=== PATIENT | male | born 1995 | race Caucasian/White ===

== ENCOUNTER 2024-10-25 10:52 | Emergency (ER) | payer BC, SELFPAY ==
[2024-10-25 11:01] VITALS: BP 139/62; PULSE 105; RESP 16; TEMP 38.2; O2SAT 97
[2024-10-25 11:22] VITALS: TEMP 38.8
[2024-10-25 11:26] LABS: EDCOVIDSCREEN Negative (Negative)
[2024-10-25 11:27] LABS: EDINFLUASCREEN Negative (Negative); EDINFLUBSCREEN Negative (Negative); EDSTREPNEGPOS1 Negative (Negative)
--- NOTE | 2024-10-25 11:39 | ED.GENADULT ---
HPI - General Adult General Chief complaint: Upper Respiratory Infection Stated complaint: Body Aches/Congestion Source: patient Mode of arrival: ambulatory Limitations: no limitations History of Present Illness HPI narrative: Patient presents for evaluation of sick symptoms since yesterday. Symptoms include sinus congestion, headache, mucopurulent discharge from the nares and fever. No nausea, vomiting, diarrhea, cough, shortness of breath. His girlfriend is here being evaluated for similar symptoms. He took dayquil for his symptoms. He does vape. Related Data Home Medications ?Medication ?Instructions ?Recorded ?Confirmed ?Last Taken ?Type carvedilol 25 mg tablet mg 10/25/24 Unknown History famotidine 20 mg tablet mg 10/25/24 Unknown History fluoxetine 20 mg capsule mg 10/25/24 Unknown History gabapentin 300 mg capsule mg 10/25/24 Unknown History insulin glargine 100 unit/mL (3 unit subcut 10/25/24 Unknown History mL) subcutaneous pen (Lantus Solostar U-100 Insulin) insulin glargine-yfgn 100 unit/mL unit subcut 10/25/24 Unknown History (3 mL) subcutaneous pen (Semglee (insulin glargine-yfgn) Pen) Allergies Allergy/AdvReac Type Severity Reaction Status Date / Time Sulfa (Sulfonamide Allergy Mild Hives Verified 10/25/24 11:11 Antibiotics) Review of Systems Review of Systems: CONSTITUTIONAL: Reports fever. Denies chills, or sweats. EYES: Denies visual changes, redness, or discharge. ENT: Reports sinus congestion, mucopurulent discharge from nares CARDIOVASCULAR: Denies chest pain, palpitations, or edema. RESPIRATORY: Denies cough or dyspnea. GASTROINTESTINAL: Denies abdominal pain, nausea, vomiting, or diarrhea. GENITOURINARY: Denies dysuria or hematuria. SKIN: Denies rash or itching. MUSCULOSKELETAL: Denies back pain, joint pain, or myalgia. NEUROLOGIC: Reports headache. Denies numbness, dizziness, or weakness. PSYCHIATRIC: Denies anxiety or depression. [facility] Past Medical History Medical History No pertinent past medical history Surgical History Surgical History No pertinent past surgical history Family History Family History Mother Family history non-contributory Social History Social History Smoking status: Current every day smoker Tobacco type: e-cigarettes/vaping Living arrangements: with family Gender identity (if verbalized by the patient): Male Sexual Orientation (if Verbalized by the Patient): Straight or Heterosexual Spiritual care concerns: No Exam Narrative: GENERAL: Appears acutely ill but nontoxic HEAD: Normocephalic, atraumatic. EYES: PERRLA and EOMI. ENT: Thick mucopurulent discharge in the nares. Mucous membranes moist. Oropharynx without tonsillar hypertrophy exudate or other lesions. Bilateral TMs pearly morton nonbulging NECK: Supple. No adenopathy or masses. No carotid bruits or JVD CHEST: Clear to auscultation. No respiratory distress. No wheezes rales or rhonchi HEART: Regular rate and rhythm. No murmur heard. Normal peripheral pulses. ABDOMEN: Soft, nontender, nondistended, normal active bowel sounds. EXTREMITIES: Normal range of motion. No edema. SKIN: Warm, dry, no rash. NEURO: No focal deficits. Alert and oriented x3. PSYCH: Normal mood and affect. Course Course Emergency Course: This is a 29-year-old male who presented for evaluation of sick symptoms. Strep, COVID, influenza were negative. He meets criteria for ABRS based upon mucopurulent characteristic of his nasal drainage. Will dc with augmentin. Increase hydration. OTC agents for symptom management. Follow up with primary provider. Go to the ER for worsening symptoms. Pt in agreement with plan of care. Level of Care: Express Care Visit Vital Signs Vital signs: Vital Signs Temperature 38.2 C H 10/25/24 11:01 Pulse Rate 105 H 10/25/24 11:01 Respiratory Rate 16 10/25/24 11:01 Blood Pressure 139/62 10/25/24 11:01 Pulse Oximetry 97 10/25/24 11:01 Oxygen Delivery Room Air 10/25/24 11:01 Temperature 38.8 C H 10/25/24 11:22 Pulse Rate 105 H 10/25/24 11:01 Respiratory Rate 16 10/25/24 11:01 Blood Pressure 139/62 10/25/24 11:01 Pulse Oximetry 97 10/25/24 11:01 Oxygen Delivery Room Air 10/25/24 11:01 Medical Decision Making Vital Signs Vital Signs: Vital Signs Temperature 38.2 C H 10/25/24 11:01 Pulse Rate 105 H 10/25/24 11:01 Respiratory Rate 16 10/25/24 11:01 Blood Pressure 139/62 10/25/24 11:01 Pulse Oximetry 97 10/25/24 11:01 Oxygen Delivery Room Air 10/25/24 11:01 Temperature 38.8 C H 10/25/24 11:22 Pulse Rate 105 H 10/25/24 11:01 Respiratory Rate 16 10/25/24 11:01 Blood Pressure 139/62 10/25/24 11:01 Pulse Oximetry 97 10/25/24 11:01 Oxygen Delivery Room Air 10/25/24 11:01 Lab Data Labs: Lab Results 10/25/24 Range/Units 11:22 POC Influenza A Ag Negative (Negative) POC Influenza B Ag Negative (Negative) POC SARS CoV-2 Ag Negative (Negative) POC Grp A Strep Screen Negative (Negative) Discharge Plan Discharge Clinical Impression: Sinusitis Patient Disposition: Home, Self-Care Condition: Stable Instructions: Antibiotic Form, Sinusitis (ED) Patient Language: Turkish Prescriptions: New amoxicillin-pot clavulanate 875-125 mg tablet 1 tablet PO Q12H Qty: 20 0RF No Action carvedilol 25 mg tablet famotidine 20 mg tablet gabapentin 300 mg capsule fluoxetine 20 mg capsule insulin glargine [Lantus Solostar U-100 Insulin] 100 unit/mL (3 mL) insulin pen SUBCUT insulin glargine-yfgn [Semglee(insulin glarg-yfgn)Pen] 100 unit/mL (3 mL) insulin pen SUBCUT Follow-up/Referrals: Summer Shultz DO [Physician] - Time of Disposition: 11:39
--- OUTSIDE RECORDS SUMMARY | 2024-11-01 05:47 | XMS_ITS | Encounter Summary ---
Author Organization [facility] Address [address] [facility] [place] [address] [place] [address] Care Team Providers Care Supervisor Newspaper Deliveries Name Role Phone Unavailable Primary Care Provider Unavailabl e Encounter Details Date Type Department Care Team (Late st Contact Info) Description 04/05/[address] [facility] [address] [place] [address] Carla Reyes MD [facility] [place] [address] Social History Tobacco Use Types Packs/Day Years Used Date Smoking Tobacco: Never Assessed Sex and Gender Information Value Date Recorded Sex Assigned at Not on file Legal Sex Male 6:33 PM CDT Gender Identity Not on file Sexual Orientation Not on file documented as of this encounter Last Filed Vital Signs Vital Sign Reading Time Taken Comments Blood Pressure 124/68 04/05/2018 4:51 PM CDT Pulse 96 04/05/2018 4:51 PM CDT Temperature - - Respiratory Rate - - Oxygen Saturation - - Inhaled Oxygen Concentration - - Weight 131.1 kg (289 lb) 04/05/2018 4:51 PM CDT Height 172.7 cm (5' 8 ) 04/05/2018 4:51 PM CDT Body Mass Index 43.94 04/05/2018 4:51 PM CDT documented in this encounter Progress Notes * Carla Reyes MD - 04/05/2018 4:45 PM CDT Reason For Visit Stomach pain since 4 am. Thinks it could be something he ate. Hx of hemorrhoids. History of Present Illness Acute Visit HPI: Abdominal Pain: The patient is being seen for abdominal pain Symptoms: abdominal pain, nausea and diarrhea, but no vomiting, no anorexia, no dysuria, no hematuria and no dark urine. Symptom Cluster Details: he reports the symptoms are improving.. Associated Symptoms: no abdominal bloating, no fever, no chills, no lightheadedness, no weight loss, no jaundice,no hematemesis, no melena and no bloody stools. Pertinent History: Pertinent medical history: no gastroesophageal reflux disease, no hiatus hernia,no peptic ulcer disease, no pancreatitis, no cholelithiasis, no kidney stone, no inflammatory boweldisease, no irritable bowel syndrome, no diverticulitis, no alcohol abuse, no malignancy, no abdominal surgery, no appendectomy and no cholecystectomy.. Review of Systems Constitutional: Normal. ENT: normal. Cardiovascular: Normal. Respiratory: Normal. Gastrointestinal: Normal. Genitourinary: Normal. Integumentary: Normal. Musculoskeletal: Normal. Neurological: Normal. Psychiatric: Normal.. Active Problems 1. Ankle pain, right (719.47) (M25.571) 2. External hemorrhoid (455.3) (K64.4) Family History Father 1. No pertinent family history Social History ?? Never a smoker Current Meds 1. Citalopram Hydrobromide TABS; TAKE 30 MG Daily; Therapy: (Recorded:05Feb2018) to Recorded Dispense: 0 Days ; #: Sufficient Tablet; Refill: 0; ANYI = N; Record; Last Updated By: Yeni Foster; 02/05/2018 11:59:16 AM 2. Hydrocortisone 2.5 % Rectal Cream; Apply 2-3 times daily as needed; Therapy: 25Mar2018 to (Last Rx:25Mar2018) Requested for: 25Mar2018 Ordered Rx By: Katrin Palencia; Dispense: 0 Days ; #:1 X 30 GM Tube; Refill: 0; For: External hemorrhoid; ANYI = N; Verified Transmission to [employer] [id number]; Last Updated By: Ximena Gan; 04/05/2018 4:53:17 PM 3. Hydrocortisone Acetate 25 MG Rectal Suppository; Insert one suppository rectally once daily for two weeks; Therapy: 25Mar2018 to (Last Rx:25Mar2018) Requested for: 25Mar2018 Ordered Rx By: Katrin Palencia; Dispense: 0 Days ; #:14 Suppository; Refill: 0; For: External hemorrhoid; ANYI = N; Verified Transmission to [employer]; Last Updated By: [email or web address]; 04/05/2018 4:53:17 PM Allergies 1. No Known Drug Allergies Recorded By: Yeni Foster; 02/05/2018 11:59:16 AM Vitals Signs Temperature: 99.4 F Heart Rate: 96 Respiration: 20 Systolic: 124, RUE Diastolic: 68, RUE Height: 5 ft 8 in Weight: 289 lb BMI Calculated: 43.94 BSA Calculated: 2.39 Physical Exam Constitutional. no acute distress, well appearing and well nourished.. Eyes. conjunctiva and lids with no swelling, erythema or discharge.. ENT. no sinus tenderness or nasal discharge and no erythema or edema of the ears and nose. . translucent with normal light reflex and canals patent without erythema. . nasal mucosa, septum, and turbinates normal without edema or erythema. . normal oropharynx without erythema, edema, exudate, or lesions.. Pulmonary. no increased work of breathing or signs of respiratory distress. . clear to auscultation.. Cardiovascular. normal rate and rhythm, normal S1 and S2, without murmurs. . pedal pulses 2+ bilaterally.. Abdomen. non-tender and without masses. . no hepatomegaly or splenomegaly.. Lymphatic. neck nodes without lymphadenopathy.. Psychiatric. oriented to person, place, and time. . mood and affect normal.. Assessment 1. Viral gastroenteritis (008.8) (A08.4) Discussion/Summary Treatment plan includes rest, increased fluid intake, dietary modification and BRAT diet. Patient instructed to call the office if not better. Patient Discussion: follow-up with PCP. Signatures Electronically signed by : Carla Reyes M.D.; Apr 05 2018 5:43PM CATCHER PLUG (Author) documented in this encounter Miscellaneous Notes * Letter - Generic Conversion MD Neil - 04/05/2018 4:45 PM CDT Date: Apr 05, 2018 To Whom It May Concern: This is to advise that Jose Mena was evaluated by me today. Please excuse from work today and may return tomorrow with NO restrictions. Dr. Reyes_/MINDA RN (Physician's Signature) Electronically signed by:aCroline Byers R.N. Apr 05 2018 5:42PM CATCHER [employer]UG documented in this encounter Plan of Treatment Not on file documented as of this encounter Visit Diagnoses Not on filedocumented in this encounter
--- OUTSIDE RECORDS SUMMARY | 2024-11-01 05:47 | XMS_ITS | Encounter Summary ---
Author Organization [facility] Address [address] [place] [address]. [place] [address] [place] [address] Care Team Providers Care Mail Handler Sorter Name Role Phone Unavailable Primary Care Provider Unavailabl e Encounter Details Date Type Department Care Team (Late st Contact Info) Description 03/16/2002 Abstract [facility] [address] [place] [address] Rush Pang MD [address] [facility] [address] [place], [place] [address] Social History Tobacco Use Types Packs/Day Years Used Date Smoking Tobacco: Never Assessed Sex and Gender Information Value Date Recorded Sex Assigned at Not on file Legal Sex Male 6:33 PM CDT Gender Identity Not on file Sexual Orientation Not on file documented as of this encounter Plan of Treatment Not on file documented as of this encounter Visit Diagnoses Not on filedocumented in this encounter
--- OUTSIDE RECORDS SUMMARY | 2024-11-01 05:47 | XMS_ITS | Encounter Summary ---
Author Organization [facility] Address [address] [facility] [place] [address] [place] [address] Care Team Providers Care Facility Practice Specialist Name Role Phone Unavailable Primary Care Provider Unavailabl e Encounter Details Date Type Department Care Team (Late st Contact Info) Description 02/05/2018 Abstract [facility] - [address] [place] [address] Carla Reyes MD [facility] [address] [place] [address] Social History Tobacco Use Types Packs/Day Years Used Date Smoking Tobacco: Never Assessed Sex and Gender Information Value Date Recorded Sex Assigned at Not on file Legal Sex Male 6:33 PM CDT Gender Identity Not on file Sexual Orientation Not on file documented as of this encounter Progress Notes * Carla Reyes MD - 02/05/2018 11:50 AM CDT Reason For Visit Reason For Visit: Acute Visit Twisted right ankle at work yesterday while stepping off pallet. History of Present Illness HPI Free Text: 22 yo gentleman presents with right ankle pain. onset was yesterday following twisting his ankle at his job. pain worsened and ankle is swollen with tingling toes. pain is located at the anterolateral aspect of his ankle. intact sensation and ROM Review of Systems Focused-Male: Constitutional: Normal. ENT: normal. Cardiovascular: Normal. Respiratory: Normal. Gastrointestinal: Normal. Genitourinary: Normal. Integumentary: Normal. Neurological: Normal. Psychiatric: Normal.. Physical Exam Constitutional General appearance: No acute distress, well appearing and well nourished. Eyes Conjunctiva and lids: No erythema, swelling or discharge. Pupils and irises: Equal, round, reactive to light. Ophthalmoscopic examination: Normal fundi and optic discs. Ears, Nose, Mouth, and Throat External inspection of ears and nose: Normal. Otoscopic examination: Tympanic membranes translucent with normal light reflex. Canals patent without erythema. Hearing: Normal. Nasal mucosa, septum, and turbinates: Normal without edema or erythema. Lips, teeth, and gums: Normal, good dentition. Oropharynx: Normal with no erythema, edema, exudate or lesions. Neck Neck: Supple, symmetric, trachea midline, no masses. Thyroid: Normal, no thyromegaly. Pulmonary Respiratory effort: No increased work of breathing or signs of respiratory distress. Percussion of chest: Normal. Palpation of chest: Normal. Auscultation of lungs: Clear to auscultation. Cardiovascular Palpation of heart: Normal PMI, no thrills. Auscultation of heart: Normal rate and rhythm, normal S1 and S2, no murmurs. Carotid pulses: 2+ bilaterally. Abdominal aorta: Normal. Femoral pulses: 2+ bilaterally. Pedal pulses: 2+ bilaterally. Examination of extremities for edema and/or varicosities: Normal. Chest Breasts: Normal, no dimpling or skin changes appreciated. Palpation of breasts and axillae: Normal, no masses palpated. Chest: Normal. Abdomen Abdomen: Non-tender, no masses. Liver and spleen: No hepatomegaly or splenomegaly. Examination for hernias: No hernias appreciated. Anus, perineum, and rectum: Normal sphincter tone, no masses, no prolapse. Stool sample for occult blood: Negative. Genitourinary Scrotal contents: Normal testes, no masses. Penis: Normal, no lesions. Digital rectal exam of prostate: Normal size, no masses. Lymphatic Palpation of lymph nodes in neck: No lymphadenopathy. Palpation of lymph nodes in axillae: No lymphadenopathy. Palpation of lymph nodes in groin: No lymphadenopathy. Palpation of lymph nodes in other areas: No lymphadenopathy. Musculoskeletal Gait and station: Normal. Inspection/palpation of digits and nails: Normal without clubbing or cyanosis. right lateral ankle tenderness. Range of motion: Normal. Stability: Normal. Muscle strength/tone: Normal. Skin Skin and subcutaneous tissue: Normal without rashes or lesions. Palpation of skin and subcutaneous tissue: Normal turgor. Neurologic Cranial nerves: Cranial nerves 2-12 intact. Reflexes: 2+ and symmetric. Sensation: No sensory loss. Psychiatric Judgment and insight: Normal. Orientation to person, place and time: Normal. Recent and remote memory: Intact. Mood and affect: Normal. Results/Data XY Ankle 3+ View Rt NC 05Feb2018 12:14PM Carla Reyes Test Name Result Flag Reference Pacs Image Result Radiology image is available. Click on Image Link above. Assessment 1. Ankle pain, right (719.47) (M25.571) Plan 1. XY Ankle 3+ View Rt NC; Status:Resulted - Requires Verification; Done: 05Feb2018 12:14PM NSAID, Tylenol, ICe, KEYANNA wrap. Follow yo with PCP Signatures Electronically signed by : Carla Reyes M.D.; Feb 05 2018 12:24PM PHOTO TECH (Author) documented in this encounter Plan of Treatment Not on file documented as of this encounter Procedures Procedure Name Priority Date/Time Associated Diagnosis Comments XR ANKLE STANDING RT 3V Routine 02/05/2018 12:14 PM CDT documented in this encounter Results * XR ANKLE STANDING RT 3V (02/05/2018 12:14 PM CDT) Anatomical Region Laterality Modality Ankle Radiographic Brandy ging 02/05/2018 12:1 4 PM CDT 02/05/2018 12:14 PM CDT Narrative 02/05/2018 1:00 PM CDT [facility] [address] [place], [place] ??[address] ?? Name: Jose Mena MD: Carla Reyes Order Number: [id number] : 1995 Sex: M Performing Location: [facility] ? Procedure Code: NCANKL3+VR Procedure: XY Ankle 3+ View Rt NC ? Examination: Right ankle 3 views Exam time: 02/05/2018 12:09 PM Clinical history: Twisted ankle. Pain. Difficulty bearing weight. Comparison: None Technique: AP, ankle mortise, and lateral views of the right ankle were obtained. Findings: No evidence of acute fracture or dislocation of the right ankle. Os trigonum. Mild degenerative changes in the ankle and midfoot. Possible ankle joint effusion. IMPRESSION: 1. No evidence of acute fracture or dislocation of the right ankle. 2. Possible ankle joint effusion. 3. Mild degenerative changes. ? Electronically Signed By: PIETRO WEBB 02/05/181258 ?? Dictated On: 02/05/181257 Interpreted By: PIETRO WEBB Radiology image is available. Click on Image Link above. Procedure Note Carla Reyes MD - 08/18/2018 [facility] [address] [id number] Name: Jose Mena Ordering MD: Carla Reyes Order Number: [id number] : 1995 Sex: M Performing Location: [facility] Procedure Code: NCANKL3+VR Procedure: XY Ankle 3+ View Rt NC Examination: Right ankle 3 views Exam time: 02/05/2018 12:09 PM Clinical history: Twisted ankle. Pain. Difficulty bearing weight. Comparison: None Technique: AP, ankle mortise, and lateral views of the right ankle wereobtained. Findings: No evidence of acute fracture or dislocation of the right ankle.Os trigonum. Mild degenerative changes in the ankle and midfoot. Possibleankle joint effusion. IMPRESSION: 1. No evidence of acute fracture or dislocation of the right ankle. 2. Possible ankle joint effusion. 3. Mild degenerative changes. Electronically Signed By: PIETRO WEBB 02/05/18 1258 Dictated On: 02/05/181257 Interpreted By: PIETRO WEBB Radiology image is available. Click on Image Link above. Carla Reyes MD GENERAL IMAGING Final Result documented in this encounter Visit Diagnoses Not on filedocumented in this encounter
--- OUTSIDE RECORDS SUMMARY | 2024-11-01 05:47 | XMS_ITS | Encounter Summary ---
Author Organization [facility] Address [address] [place] [address]. [place] [address] [place] [address] Care Team Providers Care Office Services Associate Name Role Phone Rush Pang MD Primary Care Provider Encounter Details Date Type Department Care Team (Latest Contact Info) Description 02/23/2022 Travel Social History Tobacco Use Types Packs/Day Years Used Date Smoking Tobacco: Smoker, Current Status Unknown Smokeless Tobacco: Never Comments:Vapes Alcohol Use Standard Drinks/Week Comments Not Currently 0 (1 standard drink = 0.6 oz pur e alcohol) Sex and Gender Information Value Date Recorded Sex Assigned at Not on file Legal Sex Male 6:33 PM CDT Gender Identity Not on file Sexual Orientation Not on file COVID-19 Exposure Response Date Recorded In the last 10 days, have yo u been in contact with someone who was confirmed or suspected to have Coronavirus/COVID-19? No / Unsure 02/23/2022 6:17 AM CDT documented as of this encounter Plan of Treatment Not on file documented as of this encounter Visit Diagnoses Not on filedocumented in this encounter Care Teams Office Services Associate Relationship Specialty Start Date End Date Rush Pang MD [address] [facility] [address] [place] [address] PCP - General INTERNAL MEDICINE 02/20/22 documented as of this encounter
--- OUTSIDE RECORDS SUMMARY | 2024-11-01 05:47 | XMS_ITS | Encounter Summary ---
Author Organization [facility] Address [address] [place] [address] [place] [address] Care Team Providers Care Sourcing Engineer Name Role Phone Unavailable Primary Care Provider Unavailabl e Encounter Details Date Type Department Care Team (Late st Contact Info) Description 03/29/2018 Abstract [facility] Priority Care - [address] [place] [address] Segun Madrid MD [address] [place] [address] Social History Tobacco Use Types Packs/Day Years Used Date Smoking Tobacco: Never Assessed Sex and Gender Information Value Date Recorded Sex Assigned at Not on file Legal Sex Male 6:33 PM CDT Gender Identity Not on file Sexual Orientation Not on file documented as of this encounter Last Filed Vital Signs Vital Sign Reading Time Taken Comments Blood Pressure 122/78 03/29/2018 2:12 PM CDT Pulse 97 03/29/2018 2:12 PM CDT Temperature - - Respiratory Rate - - Oxygen Saturation - - Inhaled Oxygen Concentration - - Weight 130.2 kg (287 lb) 03/29/2018 2:12 PM CDT Height - - Body Mass Index - - documented in this encounter Progress Notes * Segun Madrid MD - 03/29/2018 2:05 PM CDT Reason For Visit States seen here for hemorrhoid on Wednesday. Patient was unable to get the suppositories due to insurance needing prior authorization. Patient states had bowl movement today and hemorrhoid was bleeding. History of Present Illness Hemorrhoid (Brief): The patient is being seen for an initial evaluation of and patient was seen fewdays ago and diagnosed with external hemorrhoids, given steroids and cream and suppository that he states he could not fill due to needing prior auth. states today after a BM hemorroids started bleeding.states only till today they approved the cream but not the suppository. hemorrhoids. Symptoms: rectal bleeding, pain with defecation and anal lump, but no anal leakage, no constipation and no diarrhea. Review of Systems See HPI for pertinent positives. Constitutional: no fever and no chills. Respiratory: Normal. Gastrointestinal: no abdominal pain, no constipation, no diarrhea and no vomiting. Genitourinary: Normal. Integumentary: Normal. Active Problems 1. Ankle pain, right (719.47) [...] hemorrhoid; ANYI = N; Verified Transmission to [id number]; Last Updated By: [employer]; 03/25/2018 2:42:57 PM 3. Hydrocortisone Acetate 25 MG Rectal Suppository; Insert one suppository rectally once daily for two weeks; Therapy: 25Mar2018 to (Last Rx:25Mar2018) Requested for: 25Mar2018 Ordered Rx By: Katrin Palencia; Dispense: 0 Days ; #:14 Suppository; Refill: 0; For: External hemorrhoid; ANYI = N; Verified Transmission to [id number]; Last Updated By: Ximena Gan; 03/25/2018 2:42:59 PM Allergies 1. No Known Drug Allergies Recorded By: Yeni Foster; 02/05/2018 11:59:16 AM Vitals Signs Temperature: 98.5 F Heart Rate: 97 Respiration: 20 Systolic: 122 Diastolic: 78 O2 Saturation: 97 Weight: 287 lb Physical Exam Constitutional General appearance: No acute distress, well appearing and well nourished. Pulmonary Respiratory effort: No increased work of breathing or signs of respiratory distress. Auscultation of lungs: Clear to auscultation. no wheezing. no diminished breath sounds. no bronchial breath sounds. Cardiovascular Auscultation of heart: Normal rate and rhythm, normal S1 and S2, no murmurs. Abdomen Abdomen: Non-tender, no masses. The abdomen was soft. Liver and spleen: No hepatomegaly or splenomegaly. Anus, perineum, and rectum: Abnormal. There were no anal fissures. Nontender, non-swollen and non-thrombosed external hemorrhoid(s) were present. Assessment 1. External hemorrhoid (455.3) (K64.4) Plan External hemorrhoid 1. Apply cold compresses 4 times a day for 20 minutes to help relieve pain or itching.; Status:Complete; Done: 29Mar2018 Ordered; For:External hemorrhoid; Ordered By:Segun Madrid; 2. Call if: The symptoms seem worse.; Status:Complete; Done: 29Mar2018 Ordered; For:External hemorrhoid; Ordered By:Segun Madrid; 3. Avoid being constipated and avoid straining while having a bowel movement.; Status:Complete; Done: 29Mar2018 Ordered; For:External hemorrhoid; Ordered By:Segun Madrid; 4. Call if: You are constipated.; Status:Complete; Done: 29Mar2018 Ordered; For:External hemorrhoid; Ordered By:Segun Madrid; 5. Check for signs of blood in your stool each time you have a bowel movement.; Status:Complete; Done: 29Mar2018 Ordered; For:External hemorrhoid; Ordered By:Segun Madrid; 6. Call if: You have pain around the rectum.; Status:Complete; Done: 29Mar2018 Ordered; For:External hemorrhoid; Ordered By:Segun Madrid; 7. Drink at least 6 glasses of water or juice a day.; Status:Complete; Done: 29Mar2018 Ordered; For:External hemorrhoid; Ordered By:Segun Madrid; 8. Seek Immediate Medical Attention if: You become dizzy or lightheaded, especially when you stand up after sitting for a while.; Status:Complete; Done: 29Mar2018 Ordered; For:External hemorrhoid; Ordered By:Segun Madrid; 9. Sit for 20 minutes in a bathtub with warm water up to your waist every 4 hours.; Status:Complete; Done: 29Mar2018 Ordered; For:External hemorrhoid; Ordered By:Segun Madrid; 10. Start eating more fiber.; Status:Complete; Done: 29Mar2018 Ordered; For:External hemorrhoid; Ordered By:Segun Madrid; Instructions as above, continue hydrocortisone cream as instructed, keep f/u with PCP. Signatures Electronically signed by : Segun Madrid M.D.; Mar 29 2018 2:46PM FIELD SUPERINTENDENT (Author) documented in this encounter Miscellaneous Notes * Letter - Segun Madrid MD - 03/29/2018 2:05 PM CDT This legacy [employer] note was not finalized in [employer]. It had a status of Unsigned on 07/22/2018 Date: Mar 29, 2018 To Whom It May Concern: This is to advise that Jose Mena has been under my care and is unable to work today. Limitations/Remarks: [ ] (Physician's Signature) documented in this encounter Plan of Treatment Not on file documented as of this encounter Visit Diagnoses Not on filedocumented in this encounter
--- OUTSIDE RECORDS SUMMARY | 2024-11-01 05:47 | XMS_ITS | Encounter Summary ---
Author Organization [facility] Address [address] [place] [address]. [place], [place] [address] [place] [address] Care Team Providers Care Pensionholder Information Clerk Name Role Phone Rush Pang MD Primary Care Provider Reason for Visit * Auth/Cert Specialty Diagnoses / Procedures Referred By Lena granger Referred To Contact Diagnoses VITREOUS HEMORRHAGE Procedures INSERT LENS PROSTHESIS ONLY VITRECTOMY 23 GAUGE Referral ID Status Reason Start Date Expiration Date Visits Re quested Visits Authorized [id number] 1 1 Encounter Details Date Type Department Care Team (Late st Contact Info) Description 02/23/2022 8:00 AM CDT - 02/23/2022 9:44 AM CDT Surgery [facility] [place] [facility] [place] [address] Jimy Hartley MD Not Performed Social History Tobacco Use Types Packs/Day Years [...] AM CDT documented as of this encounter Last Filed Vital Signs Vital Sign Reading Time Taken Comments Blood Pressure - - Pulse - - Temperature - - Respiratory Rate - - Oxygen Saturation - - Inhaled Oxygen Concentration - - Weight 117.9 kg (260 lb) 02/17/2022 4:46 PM CDT Height 172.7 cm (5' 8 ) 02/17/2022 4:46 PM CDT Body Mass Index 39.53 02/17/2022 4:46 PM CDT documented in this encounter Medications at Time of Discharge apixaban 5 MG tablet Take 5 mg by mouth 2 (two) times daily. carvedilol 12.5 MG tablet Take 12.5 mg by mouth 2 (two) times daily. cholecalciferol (VITAMIN D3) 125 MCG (5000 UT) Tab Take 5,000 Units by mouth daily. famotidine 20 MG tablet Take 20 mg by mouth 2 (two) times daily as needed for Heartburn. FLUoxetine 20 MG capsule Take 20 mg by mouth daily. furosemide 20 MG tablet Take 20 mg by mouth daily. gabapentin 300 MG capsule Take 300 mg by mouth 3 (three) times daily. 2 caps in am and hs, 1 cap in pm hydrOXYzine 25 MG tablet Take 25 mg by mouth 3 (three) times daily as needed for Itching. insulin glargine 100 UNIT/ML injection (PEN) Inject 25 Units into the skin nightly at bedtime. magnesium oxide 400 (240 Mg) MG tablet Take 400 mg by mouth daily. traZODone 100 MG tablet Take 100 mg by mouth nightly at bedtime. documented as of this encounter Plan of Treatment Not on file documented as of this encounter Visit Diagnoses Not on filedocumented in this encounter Administered Medications Inactive Administered Medications - up to 3 most recent administrations Medication Order MAR Action Action Date Dose Rate Site atropine 1 % ophthalmic solution 1 drop 1 drop, Left Eye, Every 5 min, 3 doses, First dose on Wed02/23/22 at 0730, Last dose on Wed02/23/22 at 0740, Pre-Op lactated ringers infusion at 10 mL/hr, Intravenous, Continuous, Starting on Wed02/23/22 at 0730, Until Wed02/23/22 at 0934 phenylephrine (NARINDER-SYNEPHRINE) 10 % ophthalmic solution 1 drop 1 drop, Left Eye, Every 5 min, 3 doses, First dose on Wed02/23/22 at 0730, Last dose on Wed02/23/22 at 0740, Pre-Op documented in this encounter Active and Recently Administered Medications Times are shown in CDT. Scheduled Medication Order 02/21/2022 02/22/2022 02/23/2022 atropine 1 % ophthalmic solution 1 drop 1 drop, Left Eye, Every 5 min, 3 doses, First dose on Wed02/23/22 at 0730, Last dose on Wed02/23/22 at 0740, Pre-Op 0730 (Canceled Entry - Provider: Automatic Discharge Provider - Comment: Automatically canceled at discontinue of medication order)0735 (Canceled Entry - Provider: Automatic Discharge Provider - Comment: Automatically canceled at discontinue of medication order)0740 (Canceled Entry - Provider: Automatic Discharge Provider - Comment: Automatically canceled at discontinue of medication order) phenylephrine (NARINDER-SYNEPHRINE) 10 % ophthalmic solution 1 drop 1 drop, Left Eye, Every 5 min, 3 doses, First dose on Wed02/23/22 at 0730, Last dose on Wed02/23/22 at 0740, Pre-Op 0730 (Canceled Entry - Provider: Automatic Discharge Provider - Comment: Automatically canceled at discontinue of medication order)0735 (Canceled Entry - Provider: Automatic Discharge Provider - Comment: Automatically canceled at discontinue of medication order)0740 (Canceled Entry - Provider: Automatic Discharge Provider - Comment: Automatically canceled at discontinue of medication order) Continuous Medication Order 02/21/2022 02/22/2022 02/23/2022 lactated ringers infusion at 10 mL/hr, Intravenous, Continuous, Starting on Wed02/23/22 at 0730, Until Wed02/23/22 at 0934 0730 (Canceled Entry - Provider: Automatic Discharge Provider - Comment: Automatically canceled at discontinue of medication order) documented in this encounter Care Teams Pensionholder Information Clerk Relationship Specialty Start Date End Date Rush Pang MD [address] [place] [id number] PCP - General INTERNAL MEDICINE 02/20/22 documented as of this encounter
--- OUTSIDE RECORDS SUMMARY | 2024-11-01 05:47 | XMS_ITS | Encounter Summary ---
Author Organization [facility] Address [address] [place] [address]. [place] [address] [place] [address] Care Team Providers Care Caddy/Caddie Supervisor Name Role Phone Unavailable Primary Care Provider Unavailabl e Encounter Details Date Type Department Care Team (Late st Contact Info) Description 10/09/2016 Abstract [facility] Medical [facility] Priority Care - SNaomi [address] [place] [address] Social History Tobacco Use Types Packs/Day Years Used Date Smoking Tobacco: Never Assessed Sex and Gender Information Value Date Recorded Sex Assigned at Not on file Legal Sex Male 6:33 PM CDT Gender Identity Not on file Sexual Orientation Not on file documented as of this encounter Progress Notes * Yogesh Clark Md, MD - 10/09/2016 11:10 AM CST Note [facility] drug screen. Sent to [facility]. Non [facility]. Signatures Electronically signed by : Vinnie Garcia, ; Oct 09 2016 11:21AM AQUARIUM TANK ATTENDANT (Author) documented in this encounter Plan of Treatment Not on file documented as of this encounter Visit Diagnoses Not on filedocumented in this encounter
--- OUTSIDE RECORDS SUMMARY | 2024-11-01 05:47 | XMS_ITS | Encounter Summary ---
Author Organization [facility] Address [facility] [place] [address] [place] [address] Care Team Providers Care Photographic Enlarger Operator Name Role Phone Unavailable Primary Care Provider Unavailabl e Encounter Details Date Type Department Care Team (Late st Contact Info) Description 02/05/2018 Abstract [facility] Priority Care - [address] [place] [address] Carla Reyes MD [facility] [address] [place], [place] [id number] Social History Tobacco Use Types Packs/Day Years Used Date Smoking Tobacco: Never Assessed Sex and Gender Information Value Date Recorded Sex Assigned at Not on file Legal Sex Male 6:33 PM CDT Gender Identity Not on file Sexual Orientation Not on file documented as of this encounter Last Filed Vital Signs Vital Sign Reading Time Taken Comments Blood Pressure 124/62 02/05/2018 11:57 AM CDT Pulse 96 02/05/2018 11:57 AM CDT Temperature - - Respiratory Rate - - Oxygen Saturation - - Inhaled Oxygen Concentration - - Weight 130.2 kg (287 lb) 02/05/2018 11:57 AM CDT Height - - Body Mass Index - - documented in this encounter Plan of Treatment Not on file documented as of this encounter Visit Diagnoses Not on filedocumented in this encounter
--- OUTSIDE RECORDS SUMMARY | 2024-11-01 05:47 | XMS_ITS | Encounter Summary ---
Author Organization [facility] Address [address] [place] [address]. [place], [place] [address] [place] [address] Care Team Providers Care Box Maker Wood Name Role Phone Rush Pang MD Primary Care Provider Reason for Visit * Auth/Cert Specialty Diagnoses / Procedures Referred By Lena granger Referred To Contact Diagnoses VITREOUS HEMORRHAGE Procedures INSERT LENS PROSTHESIS ONLY VITRECTOMY 23 GAUGE Referral ID Status Reason Start Date Expiration Date Visits Re quested Visits Authorized [id number] 1 1 Encounter Details Date Type Department Care Team (Latest Contact Info) Description 02/23/2022 6:19 AM CDT - 02/23/2022 7:28 AM CDT Hospital Encounter [facility] [place] [address] [place] [address] Jimy Hartley MD Discharge Disposition: Home or Self Care (Routine Discharge) Social History Tobacco Use Types Packs/Day Years [...] order) documented in this encounter Care Teams Box Maker Wood Relationship Specialty Start Date End Date Rush Pang MD [address] [address] PCP - General INTERNAL MEDICINE 02/20/22 documented as of this encounter
--- OUTSIDE RECORDS SUMMARY | 2024-11-01 05:47 | XMS_ITS | Encounter Summary ---
Author Organization [facility] Address [address] [place] [address]. [place] [address] [place] [address] Care Team Providers Care Reed Repairer Name Role Phone Rush Pang MD Primary Care Provider Reason for Visit * Auth/Cert Specialty Diagnoses / Procedures Referred By Lena granger Referred To Contact Diagnoses VITREOUS HEMORRHAGE Procedures INSERT LENS PROSTHESIS ONLY VITRECTOMY 23 GAUGE Referral ID Status Reason Start Date Expiration Date Visits Re quested Visits Authorized [id number] 1 1 Encounter Details Date Type Department Care Team (Late st Contact Info) Description 02/23/2022 8:00 AM CDT Anesthesia Event [facility] [address] [place] [address] Derek Wolf MD Anesthesia Record Procedure Summary Procedure Name Responsible Anesthesiologist Anesthesia Start Time Anesthesia Stop Time Events Date Time Event Comment 02/23/2022 0633 0633 AN Anesthesia Prepped 02/27/2022 1420 ANE Not Admin Meds * Agents No agents on file. * Blood No blood administrations on file. Lines, Drains, and Airways No LDAs on file. documented in this encounter Social History Tobacco Use Types Packs/Day Years [...] AM CDT documented as of this encounter OR Notes * Anesthesia Preprocedure Evaluation - Derek Wolf MD - 02/23/2022 6:32 AM CDT Anesthesia ROS/MED History Reviewed: Patient summary , Nursing notes , Anesthesia history , Medications , Unchecked boxes are not applicable Pre-Anesthetic State: awake and responds appropriately Pulmonary (+) sleep apnea, (CPAP) Cardiovascular (+) hypertension, (well controlled) ROS comment: History of PE Neuro/Psych (+) depression GI/Hepatic/Renal (+) GERD, (well controlled) Endo/Other (+) diabetes mellitus, (well controlled), (type 2), (sub Q insulin), obese, (Morbid), blood dyscrasia, (Anticoagulation) Physical Evaluation Airway Mallampati: III TM Distance: >3 FB Neck ROM: limited extension Dental No notable dental history Pulmonary Pulmonary exam normal Breath sounds clear to auscultation Cardiovascular Rhythm: regular Rate: normal Cardiovascular exam normal Anesthesia Plan ASA 3 Intravenous Induction Anesthesia type: MAC Informed Consent Anesthetic plan and risks discussed with patient of whom consent was obtained. . documented in this encounter Plan of Treatment Not on file documented as of this encounter Visit Diagnoses Not on filedocumented in this encounter Care Teams Reed Repairer Relationship Specialty Start Date End Date Rush Pang MD [address] [address] PCP - General INTERNAL MEDICINE 02/20/22 documented as of this encounter
--- OUTSIDE RECORDS SUMMARY | 2024-11-01 05:47 | XMS_ITS | Encounter Summary ---
Author Organization [facility] Address [address] [place] [address]. [place] [address] [place] [address] Care Team Providers Care Staff Developer Name Role Phone Unavailable Primary Care Provider Unavailabl e Encounter Details Date Type Department Care Team (Late st Contact Info) Description 1997 Abstract [facility] [address] [place] [address] , Generic Conversion, Social History Tobacco Use Types Packs/Day Years [...]
--- OUTSIDE RECORDS SUMMARY | 2024-11-01 05:47 | XMS_ITS | Encounter Summary ---
Author Organization [facility] Address [address] [place] [address]. [place], [place] [address] [place] [address] Care Team Providers Care Court Operations Clerk Name Role Phone Unavailable Primary Care Provider Unavailabl e Reason for Visit * Reason Comments ECG (SCAN) Encounter Details Date Type Department Care Team ([facility] st Contact Info) Description 01/12/2022 Scan [facility] [address] [place] [address] Scanned, Documents ECG (SCAN) Social History Tobacco Use Types Packs/Day Years [...] suspected to have Coronavirus/COVID-19? No / Unsure 02/17/2022 4:50 PM CDT documented as of this encounter Plan of Treatment Not on file documented as of this encounter Procedures Procedure Name Priority Date/Time Associated Diagnosis Comments ECG GENERIC (SCAN ORDER) Routine 01/12/2022 12:00 AM CDT documented in this encounter Results * ECG (01/12/2022 12:00 AM CDT) 01/12/2022 us Documents Scanned SCANNING Final Result [facility] documented in this encounter Visit Diagnoses Not on filedocumented in this encounter
--- OUTSIDE RECORDS SUMMARY | 2024-11-01 05:47 | XMS_ITS | Encounter Summary ---
Author Organization [facility] Address [address] [place] [address] [place] [address] Care Team Providers Care Centrifuge Separator Tender Name Role Phone Unavailable Primary Care Provider Unavailabl e Encounter Details Date Type Department Care Team (Late st Contact Info) Description 03/25/2018 Abstract [facility] Priority Care - [address] [place] [address] Katrin Palencia NP [address] [place] [address] Social History Tobacco Use Types Packs/Day Years Used Date Smoking Tobacco: Never Assessed Sex and Gender Information Value Date Recorded Sex Assigned at Not on file Legal Sex Male 6:33 PM CDT Gender Identity Not on file Sexual Orientation Not on file documented as of this encounter Last Filed Vital Signs Vital Sign Reading Time Taken Comments Blood Pressure 112/60 03/25/2018 2:16 PM CDT Pulse 78 03/25/2018 2:16 PM CDT Temperature - - Respiratory Rate - - Oxygen Saturation - - Inhaled Oxygen Concentration - - Weight - - Height - - Body Mass Index - - documented in this encounter Progress Notes * Katrin Palencia NP - 03/25/2018 2:10 PM CDT Reason For Visit c/o rectal pain x 2-3 days. Chief Complaint Patient is here for rectal pain for 2-3 days. Blood with wiping x 2 (scant amount) today. Hurts with standing, sitting, walking. History of Present Illness HPI Free Text: Patient presents today c/o rectal pain x 2-3 days. He states a history of hemorrhoids but has not had one is a while. He noticed a small amount of blood on the toilet paper this morning when he wiped. He states that he lifts heavy objects at work and has to stand for long periods of time. Rectal Pain: Jose Mena presents with complaints of rectal pain. Associated symptoms include pain with defecation and rectal bleeding, but no perianal pain, no constipation, no diarrhea, no rectal discharge, no fecal incontinence, no perianal itching, no black or tarry stools, no anal mass, no fever, no chills, no weight loss, no perianal rash, no nausea, no vomiting and no abdominal pain. Review of Systems See HPI for pertinent positives. Constitutional: Normal. ENT: normal. Cardiovascular: Normal. Respiratory: Normal. Gastrointestinal: rectal pain, but no abdominal pain, no constipation, no diarrhea and no vomiting. Genitourinary: Normal. Integumentary: Normal. Musculoskeletal: Normal. Neurological: Normal. Psychiatric: Normal.. Active Problems 1. Ankle pain, right (719.47) (M25.571) Family History Father 1. No pertinent family history Social History ?? Never a smoker Current Meds 1. Citalopram Hydrobromide TABS; TAKE 30 MG Daily; Therapy: (Recorded:05Feb2018) to Recorded Dispense: 0 Days ; #: Sufficient Tablet; Refill: 0; ANYI = N; Record; Last Updated By: Yeni Foster; 02/05/2018 11:59:16 AM Allergies 1. No Known Drug Allergies Recorded By: Yeni Foster; 02/05/2018 11:59:16 AM Vitals Signs Temperature: 97.8 F Heart Rate: 78 Respiration: 18 Systolic: 112 Diastolic: 60 Physical Exam A tender, swollen, non-thrombosed external hemorrhoid was present. Residual hemorrhoidal skin tags noted. The sphincter tone was normal. There was rectal tenderness present on the right in the 2:00 position. Constitutional. no acute distress, well appearing and well nourished.. Head/Face. normal.. Eyes. conjunctiva and lids with no swelling, erythema or discharge.. Pulmonary. no increased work of breathing or signs of respiratory distress. . clear to auscultation.. Cardiovascular. normal rate and rhythm, normal S1 and S2, without murmurs.. Abdomen. non-tender and without masses.. Psychiatric. oriented to person, place, and time. . mood and affect normal.. Assessment 1. External hemorrhoid (455.3) (K64.4) Plan External hemorrhoid 1. Hydrocortisone 2.5 % Rectal Cream; Apply 2-3 times daily as needed Rx By: Katrin Palencia; Dispense: 0 Days ; #:1 X 30 GM Tube; Refill: 0; For: External hemorrhoid; ANYI = N; Verified Transmission to [employer]; Last Updated By: [employer] 03/25/2018 2:42:57 PM 2. Apply cold compresses 4 times a day for 20 minutes to help relieve pain or itching.; Status:Complete; Done: 25Mar2018 02:55PM Ordered; For:External hemorrhoid; Ordered By:Katrin Palencia; 3. Call if: The symptoms seem worse.; Status:Complete; Done: 25Mar2018 02:55PM Ordered; For:External hemorrhoid; Ordered By:Katrin Palencia; 4. Hydrocortisone Acetate 25 MG Rectal Suppository; Insert one suppository rectally once daily for two weeks Rx By: Katrin Palencia; Dispense: 0 Days ; #:14 Suppository; Refill: 0; For: External hemorrhoid; ANYI = N; Verified Transmission to [employer]; Last Updated By: [employer] 03/25/2018 2:42:59 PM Formulary Override Reason: No Formulary Equivalent Exists 5. Avoid being constipated and avoid straining while having a bowel movement.; Status:Complete; Done: 25Mar2018 02:55PM Ordered; For:External hemorrhoid; Ordered By:Katrin Palencia; 6. Call if: Your rectal pain is worse.; Status:Complete; Done: 25Mar2018 02:55PM Ordered; For:External hemorrhoid; Ordered By:Katrin Palencia; 7. Check for signs of blood in your stool each time you have a bowel movement.; Status:Complete; Done: 25Mar2018 02:55PM Ordered; For:External hemorrhoid; Ordered By:Katrin Palencia; 8. Call if: Your swelling is not better after a few days of treatment and/or rest.; Status:Complete; Done: 25Mar2018 02:55PM Ordered; For:External hemorrhoid; Ordered By:Katrin Palencia; 9. Drink at least 6 glasses of water or juice a day.; Status:Complete; Done: 25Mar2018 02:55PM Ordered; For:External hemorrhoid; Ordered By:Katrin Palencia; 10. Call if: Your temperature is higher than 101F.; Status:Complete; Done: 25Mar2018 02:55PM Ordered; For:External hemorrhoid; Ordered By:Katrin Palencia; 11. Sit for 20 minutes in a bathtub with warm water up to your waist every 4 hours.; Status:Complete; Done: 25Mar2018 02:55PM Ordered; For:External hemorrhoid; Ordered By:Katrin Palencia; 12. Seek Immediate Medical Attention if: You become dizzy or lightheaded, especially when you stand up after sitting for a while.; Status:Complete; Done: 25Mar2018 02:55PM Ordered; For:External hemorrhoid; Ordered By:Katrin Palencia; 13. Start eating more fiber.; Status:Complete; Done: 25Mar2018 02:55PM Ordered; For:External hemorrhoid; Ordered By:Katrin Palencia; 14. Seek Immediate Medical Attention if: You begin bleeding from the affected area or your dressing becomes soaked with blood.; Status:Complete; Done: 25Mar2018 02:55PM Ordered; For:External hemorrhoid; Ordered By:Katrin Palencia; 15. Status:Complete; Done: 25Mar2018 02:55PM Ordered; For:External hemorrhoid; Ordered By:Katrin Palencia; Signatures Electronically signed by : CURT Jordan; Mar 25 2018 2:55PM GAUNTLET PAIRER (Author) documented in this encounter Miscellaneous Notes * Letter - Katrin Palencia NP - 03/25/2018 2:10 PM CDT Date: Mar 25, 2018 To Whom It May Concern: This is to advise that Jose Mena has been under my care and is unable to work for 3 days. Limitations/Remarks: return to work on 03/28 (Physician's Signature) Electronically signed by:Lexy Jackson R.N. Mar 25 2018 2:36PM GAUNTLET PAIRER documented in this encounter Plan of Treatment Not on file documented as of this encounter Visit Diagnoses Not on filedocumented in this encounter
--- OUTSIDE RECORDS SUMMARY | 2024-11-01 05:47 | XMS_ITS | Encounter Summary ---
Author Organization [facility] Address On license of [facility] [facility] [place] [address] [place] [address] Care Team Providers Care Controls Technician Name Role Phone Unavailable Primary Care Provider Unavailabl e Encounter Details Date Type Department Care Team (Late st Contact Info) Description 05/13/2005 Emergency [facility] Emergency [address] [place] [address] Rush Pang MD [address] [place] [address] [address] [place] [address] Social History Tobacco Use Types Packs/Day Years [...]
--- OUTSIDE RECORDS SUMMARY | 2024-11-01 05:47 | XMS_ITS | Encounter Summary ---
Author Organization [facility] Address [address] [place] [address]. [place], [place] [id number] [place] [address] Care Team Providers Care Manager Fine Dining Name Role Phone Unavailable Primary Care Provider Unavailabl e Encounter Details Date Type Department Care Team (Latest Contact Info) Description 02/17/2022 Travel Social History Tobacco Use Types Packs/Day [...]
--- OUTSIDE RECORDS SUMMARY | 2024-11-01 05:47 | XMS_ITS | Encounter Summary ---
Author Organization [facility] Address [address] [place] [address]. [place] [address] [place] [address] Care Team Providers Care Regular Senior Care Provider Name Role Phone Unavailable Primary Care Provider Unavailabl e Encounter Details Date Type Department Care Team (Late st Contact Info) Description 07/13/1998 Abstract [facility] [address] [place] [address] Casper Graves MD [address] [place], [place] [id number] Social History Tobacco Use Types Packs/Day Years [...]
--- OUTSIDE RECORDS SUMMARY | 2024-11-01 05:47 | XMS_ITS | Clinical Summary ---
Author Organization [facility] [place] Address [address] [place] [address]. [place], [place] [address] [place] [address] Care Team Providers Care Er Physician Name Role Phone Rush Pang MD Primary Care Provider Allergies Active Allergy Reactions Criticality Noted Date Comments Clarithromycin Rash Low 02/17/2022 Sulfamethoxazole-Trimetho prim Other (see comment) 02/17/2022 Severe stomach cramps Medications carvedilol 12.5 MG tablet Take 12.5 mg by mouth 2 (two) times daily. Active apixaban 5 MG tablet Take 5 mg by mouth 2 (two) times daily. Active famotidine 20 MG tablet Take 20 mg by mouth 2 (two) times daily as needed for Heartburn. Active FLUoxetine 20 MG capsule Take 20 mg by mouth daily. Active furosemide 20 MG tablet Take 20 mg by mouth daily. Active gabapentin 300 MG capsule Take 300 mg by mouth 3 (three) times daily. 2 caps in am and hs, 1 cap in pm Active hydrOXYzine 25 MG tablet Take 25 mg by mouth 3 (three) times daily as needed for Itching. Active insulin glargine 100 UNIT/ML injection (PEN) Inject 25 Units into the skin nightly at bedtime. Active magnesium oxide 400 (240 Mg) MG tablet Take 400 mg by mouth daily. Active traZODone 100 MG tablet Take 100 mg by mouth nightly at bedtime. Active cholecalciferol (VITAMIN D3) 125 MCG (5000 UT) Tab Take 5,000 Units by mouth daily. Active Family History Medical History Relation Comments Diabetes Mother Relation Status Comments Father Alive Mother Alive Social History Tobacco Use Types Packs/Day Years [...] on file Sexual Orientation Not on file Last Filed Vital Signs Vital Sign Reading [...] Mass Index 39.53 02/17/2022 4:46 PM CDT Plan of Treatment Health Maintenance Due Date Last Done Comments Annual Physical 2000 Pneumococcal Vaccine: Pediatrics (0 to 5 Years) and At-Risk Patients (6 to 64 Years) (1 of 2 - PCV) 2003 Hepatitis C 2015 COVID-19 Vaccine (3 - 2023- season) 2024 01/14/2022, 12/24/2021 Influenza Adult (#1) 2024 DTaP, Tdap and Td Vaccines (7 - Td or Tdap) 08/27/2029 08/27/2019, 06/21/2002, 04/02/2000, Additional history exists Hepatitis B Vaccines Completed 10/04/2000, 1997, 1997, Additional history exists HPV Vaccines Aged Out No longer eligi ble based on patient's age to complete this topic Meningococcal Vaccine Aged Out No lulu sonny eligible based on patient's age to complete this topic RSV Immunizations Under 20 Months Aged Out No longer eligible based on patient's age to complete this topic [place] [address] [address] [address] [employer] Care Teams Er Physician Relationship Specialty Start Date End Date Rush Pang MD [address] [facility] [address] [place] [address] PCP - General INTERNAL MEDICINE 02/20/22
--- OUTSIDE RECORDS SUMMARY | 2024-11-01 05:47 | XMS_ITS | Encounter Summary ---
Author Organization [facility] Address [facility] [facility] [address] [place] [address] Care Team Providers Care Principal Technical Architect Name Role Phone Unavailable Primary Care Provider Unavailabl e Encounter Details Date Type Department Care Team (Late st Contact Info) Description 03/14/[address] [facility] [address] [place] [address] Rush Pang MD [address] [facility] [address] [place] [id number] Social History Tobacco Use Types Packs/Day Years [...]
--- OUTSIDE RECORDS SUMMARY | 2024-11-01 05:47 | XMS_ITS | Encounter Summary ---
Author Organization [facility] Address [address] [place] [address]. [place] [address] [place] [address] Care Team Providers Care Offset Label Rewinder Name Role Phone Unavailable Primary Care Provider Unavailabl e Encounter Details Date Type Department Care Team (Late st Contact Info) Description 02/05/1998 Abstract [facility] [address] [place] [address] , Generic Conversion, Social History Tobacco Use [...]
== END 2024-10-25 11:44 | disposition home or self-care (01) ==
PROVIDERS: Emergency Provider Nurse Practitioner
DX: J32.9 Chronic sinusitis, unspecified (principal); Z20.822 Contact with and (suspected) exposure to COVID-19
CPT/HCPCS: 87081; 87426; 87804; 87880; 99203; G0463

== ENCOUNTER 2024-11-21 08:08 | Outpatient (RCR) | payer OTHER, SELFPAY ==
--- NOTE | 2024-11-21 09:08 | OPREHPOC ---
Outpatient Therapy Plan of Care This is a Multidisciplinary Plan of Care that may contain components documented by all disciplines (PT, OT, and ST.) PT Problem 1 PT Problem #1 Knowledge Deficit PT Goal 1 Goal / Goal Update The patient will be independent in home exercise program. Target Visit 4 PT Problem 2 PT Problem #2 Pain PT Goal 1 Goal / Goal Update The patient will report no greater than 3/10 right shoulder pain with lifting and sleeping. Target Visit 8 PT Problem 3 PT Problem #3 Impaired Functional Mobility PT Goal 1 Goal / Goal Update The patient will demonstrate 30% or less self perceived disability per the Quick DASH questionnaire. The patient will demonstrate the ability to lift 30 lbs from floor to waist without increased right shoulder pain to return to lifting his toddlers. Target Visit 8 PT Problem 4 PT Problem #4 Impaired Range of Motion PT Goal 1 Goal / Goal Update The patient will improve right shoulder flexion to 140 degrees or more to improve overhead reaching ability. The patient will improve functional right shoulder IR to T10 to improve ability to wash the back. Target Visit 8 PT Problem 5 PT Problem #5 Impaired Strength PT Goal 1 Goal / Goal Update The patient will demonstrate 4+/5 right shoulder strength throughout without pain elicited. Target Visit 8
--- NOTE | 2024-11-21 09:09 | PTOPEVAL1 ---
Assessment and note entered by Stella Marcus, PT Evaluation Information Assessment Status Evaluation Diagnosis R shoulder sprain ICD-10 Condition Codes (PT) Pain in right shoulder M25.511 Other ICD-10 Condition Codes ( S43.401A PT) Onset 10/23/24 Subjective Information Jose Mena reports he injured his right shoulder while working at [employer] in mid September 2024. He was turning a pipe wrench and felt a pop in his shoulder. He went to the doctor through [facility] and was started on an anti-inflammatory. 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 It helped a little but then it stopped helping so he was switched to another anti- inflammatory and referred to PT. He notes increased pain when he lifts his arm out to the side, reaching behind his back, laying on the right side, and trying to hold his toddlers. He has not had any x-rays or other diagnostic tests. Reported Pain Level Pain Score 6: Self Report Assessment PT Clinical Summary Jose Mena presents with right shoulder pain following an injury sustained mid September 2024 while turning a pipe wrench. He is reporting difficulty with lifting his right arm to the side, behind his back, laying on the right side, and lifting. He objectively demonstrates tenderness along the long head of the biceps and subscapularis insertion, decreased and painful right shoulder AROM, decreased right shoulder strength, and positive special tests consistent with subscapularis and biceps involvement. He will benefit from skilled PT to address these limitations. Plan of Care Interventions Electrical Stimulation,Hot Pack/Cold Pack,Manual Therapy,Neuro Re-education,Patient/Caregiver Education,Therapeutic Activities,Therapeutic Exercise PT Services Indicated Yes Treatment Frequency and 2 times a week for 8 visits Duration These treatments will address the objective and functional deficits as defined above. The patient will be advanced safely and appropriately in order for the patient to progress towards his/her prior level of function. Additional exercises will be introduced and as well as a comprehensive home exercise program upon discharge, if needed, ?to ensure carryover of functional gains achieved in the clinic. This treatment plan has been reviewed and agreement upon by the patient.
--- NOTE | 2024-12-18 09:53 | OPREHPOC ---
Outpatient Therapy Plan of Care This is a Multidisciplinary Plan of Care that may contain components documented by all disciplines (PT, OT, and ST.) PT Problem 1 PT Problem #1 Knowledge Deficit PT Goal 1 Goal / Goal Update The patient will be independent in home exercise program. Target Visit 4 Progress Met PT Problem 2 PT Problem #2 Pain PT Goal 1 Goal / Goal Update The patient will report no greater than 3/10 right shoulder pain with lifting and sleeping. Target Visit 8 Progress Not Met PT Goal 2 Goal / Goal Update Continue Target Visit 16 PT Problem 3 PT Problem #3 Impaired Functional Mobility PT Goal 1 Goal / Goal Update The patient will demonstrate 30% or less self perceived disability per the Quick DASH questionnaire. The patient will demonstrate the ability to lift 30 lbs from floor to waist without increased right shoulder pain to return to lifting his toddlers. Target Visit 8 Progress Not Met PT Goal 2 Goal / Goal Update Continue Target Visit 16 PT Problem 4 PT Problem #4 Impaired Range of Motion PT Goal 1 Goal / Goal Update The patient will improve right shoulder flexion to 140 degrees or more to improve overhead reaching ability. The patient will improve functional right shoulder IR to T10 to improve ability to wash the back. Target Visit 8 Progress Met PT Problem 5 PT Problem #5 Impaired Strength PT Goal 1 Goal / Goal Update The patient will demonstrate 4+/5 right shoulder strength throughout without pain elicited. Target Visit 8 Progress Not Met PT Goal 2 Goal / Goal Update Continue Target Visit 16
--- NOTE | 2024-12-18 09:54 | PTOPPROG ---
Assessment and note entered by Maria Luisa Canales, PT Evaluation Information Assessment Status Progress Diagnosis R shoulder sprain ICD-10 Condition Codes (PT) Pain in right shoulder M25.511 Other ICD-10 Condition Codes ( S43.401A PT) Onset 10/23/24 Subjective Information Mr. Mena notes some improvement in his R shoulder strength since beginning therapy but besides this his shoulder is unchanged. Pain is intermittent in nature but is still the same intensity and increases when he lifts his arm out to the side, reaching behind his back, laying on the right side, and trying to hold his toddlers. Pain also continues to wake him up at night. Assessment PT Clinical Summary Mr. eMna has attended 8 total skilled therapy visits addressing R shoulder pain and weakness. While his R shoulder strength and ROM have mildly improved, he still demonstrates impairments in these areas as well as continued impaired functional use of the arm. He can benefit from further skilled PT intervention to improve on these deficits return to prior level of function and normal work activities without pain. Plan of Care Interventions Electrical Stimulation,Hot Pack/Cold Pack, Intermittent Compression Pump,Manual Therapy,Neuro Re-education,Patient/Caregiver Education, Therapeutic Activities,Therapeutic Exercise,Self- Care/Home Management PT Services Indicated Yes Treatment Frequency and 2x/week for 8 visits Duration These treatments will address the objective and functional deficits as defined above. The patient will be advanced safely and appropriately in order for the patient to progress towards his/her prior level of function. Additional exercises will be introduced and as well as a comprehensive home exercise program upon discharge, if needed, ?to ensure carryover of functional gains achieved in the clinic. This treatment plan has been reviewed and agreement upon by the patient.
--- NOTE | 2025-01-15 16:35 | PCPTNOTE ---
Patient did not show up for scheduled appointment this date.
--- NOTE | 2025-01-18 17:27 | PCPTNOTE ---
Cancelled session. Started new job. Reports he is all over the place and forgetting.
--- NOTE | 2025-02-05 13:18 | PCPTNOTE ---
Cancelled session.Thought his appointment was tomorrow and his schedule is busy with his new job.
--- NOTE | 2025-02-07 08:27 | PCPTNOTE ---
No call, no show.
== END 2025-02-19 23:59 | disposition home or self-care (01) ==
LOC: CHSPT 08:08
DX: S43.401A Unspecified sprain of right shoulder joint, initial encounter (principal)
CPT/HCPCS: 97014; 97110; 97112; 97150; 97161; 97530; G0283

== ENCOUNTER 2025-02-06 16:20 | Emergency (ER) | payer SELFPAY ==
[2025-02-06 16:23] VITALS: BP 159/98; PULSE 100; RESP 18; O2SAT 96
--- NOTE | 2025-02-06 16:30 | ED.GENADULT ---
HPI - General Adult General Chief complaint: Unspecified Stated complaint: ALLERGIC REACTION Time Seen by Provider: 02/06/25 16:29 Source: patient Mode of arrival: ambulatory Limitations: no limitations History of Present Illness HPI narrative: patient is a 29-year-old male with a significant past medical history that presents today for possible allergic reaction. Patient takes fluoxetine and has for many many years. He says this morning he took it and the capsule opened and he coughed a backup and all the stuff inside of it went to the back of his throat and he choked on L a bit and cough that up and then his throat started stinging and burning and turn red. Onset (ago): hour(s) Location: mouth Radiation: non-radiation Severity: mild Severity scale (1-10): 2 Quality: burning Pain Consistency: constant Relieving factors: none Exacerbating factors: none Associated symptoms: denies other symptoms Treatments prior to arrival: none Related Data Home Medications ?Medication ?Instructions ?Recorded ?Confirmed ?Last Taken ?Type carvedilol 25 mg tablet mg 10/25/24 Unknown History famotidine 20 mg tablet mg 10/25/24 Unknown History fluoxetine 20 mg capsule mg 10/25/24 Unknown History gabapentin 300 mg capsule mg 10/25/24 Unknown History insulin glargine 100 unit/mL (3 unit subcut 10/25/24 Unknown History mL) subcutaneous pen (Lantus Solostar U-100 Insulin) insulin glargine-yfgn 100 unit/mL unit subcut 10/25/24 Unknown History (3 mL) subcutaneous pen (Semglee (insulin glargine-yfgn) Pen) Allergies Allergy/AdvReac Type Severity Reaction Status Date / Time Sulfa (Sulfonamide Allergy Mild Hives Verified 02/06/25 16:28 Antibiotics) Review of Systems Review of Systems: All systems reviewed & are unremarkable except as noted in HPI and below Constitutional: Constitutional: Reports as per HPI and Reports no additional constitutional complaints Eyes: Eyes: Reports no additional eye complaints ENT: Reports as per HPI and Reports mouth pain Cardiovascular: Cardiovascular: Reports no additional cardiovascular complaints Respiratory: Respiratory: Reports no additional respiratory complaints Gastrointestinal: Gastrointestinal: Reports no additional gastrointestinal complaints Genitourinary: Genitourinary: Reports no additional male genitourinary complaints Musculoskeletal: Musculoskeletal: Reports no additional musculoskeletal complaints Integumentary/Breasts: Skin/Breast: Reports system reviewed and no additional complaints, except as docu Neurologic: Reports system reviewed and no additional complaints, except as documented Psychiatric: Psychiatric: Reports no additional psychiatric complaints Endocrine: Endocrine: Reports no additional endocrine complaints Hematologic/Lymphatic: Hematologic/Lymphatic: Reports no additional hematologic/lymphatic complaints Allergic/Immunologic: Allergic/Immunologic: Reports no additional allergic/immunologic complaints [facility] Past Medical History Medical History No pertinent past medical history Surgical History Surgical History No pertinent past surgical history Family History Family History Mother Family history non-contributory Social History Social History Smoking status: Current every day smoker Tobacco type: e-cigarettes/vaping Living arrangements: with family Gender identity (if verbalized by the patient): Male Sexual Orientation (if Verbalized by the Patient): Straight or Heterosexual Spiritual care concerns: No Exam Const: General: cooperative Nutritional Appearance: average body habitus Orientation/consciousness: oriented to person HENMT: Head: normal to inspection Ears: hearing grossly normal bilaterally Face/Nose/Sinus: Normal external nose present Face and sinus: normal facial exam Mouth: Yes Normal oral and palatal mucosa present Teeth and gingiva: dentition normal Throat: posterior oropharynx normal Eyes: General: appearance normal, both eyes and all related structures Neck: Neck: normal visual inspection Thyroid: thyroid normal Carotids: normal carotid upstroke Chest: Chest palpation & inspection: normal inspection of the chest Resp: Effort & Inspection: normal respiratory effort Auscultation: clear to auscultation bilaterally Percussion: percussion normal Cardio: Jugular venous distension: no JVD Palpation: normal PMI Rate: regular rate GI: Inspection: normal to inspection GI Palp: Yes abdominal tenderness Percussion: Yes normal to percussion Auscultation: normal bowel sounds Rectal Exam: visual inspection normal Back/Spine/Pelvis: Back: no CVA tenderness Skin: General skin exam: normal color Neuro: General: oriented to person and oriented to place Cognition (Neuro): normal cognition Speech: normal speech Gait exam (Neuro): Normal gait present Extrem: General: normal to inspection Right lower extremity: normal to inspection Psych: Appearance: grossly normal Course Vital Signs Vital signs: Vital Signs Pulse Rate 100 02/06/25 16:23 Respiratory Rate 18 02/06/25 16:23 Blood Pressure 159/98 H 02/06/25 16:23 Pulse Oximetry 96 02/06/25 16:23 Oxygen Delivery Room Air 02/06/25 16:23 Pulse Rate 100 02/06/25 16:23 Respiratory Rate 18 02/06/25 16:23 Blood Pressure 159/98 H 02/06/25 16:23 Pulse Oximetry 96 02/06/25 16:23 Oxygen Delivery Room Air 02/06/25 16:23 Medical Decision Making MDM Narrative Medical decision making narrative: Patient is has some stinging and burning sensation in the back of his throat from the capsule breaking open in the anterior contents going on in his throat. It is just irritated and a little bit red but there are no signs of any infection no signs of any allergic reaction he is taking his medication for a very long time he is a allergic reaction to it. Discussed with him getting some prolonged measures and today he knows to he has the pain Differential Diagnosis Differential Diagnosis: throat pain, oral pharynx erythema Medical Records Medical records reviewed: Yes I reviewed the external patient's medical records. Vital Signs Vital Signs: Vital Signs Pulse Rate 100 02/06/25 16:23 Respiratory Rate 18 02/06/25 16:23 Blood Pressure 159/98 H 02/06/25 16:23 Pulse Oximetry 96 02/06/25 16:23 Oxygen Delivery Room Air 02/06/25 16:23 Pulse Rate 100 02/06/25 16:23 Respiratory Rate 18 02/06/25 16:23 Blood Pressure 159/98 H 02/06/25 16:23 Pulse Oximetry 96 02/06/25 16:23 Oxygen Delivery Room Air 02/06/25 16:23 Discharge Plan Discharge Clinical Impression: Pain in throat, Throat irritation Patient Disposition: Home Condition: Stable Instructions: Acute Rash (ED) Patient Language: Australian Prescriptions: No Action carvedilol 25 mg tablet famotidine 20 mg tablet gabapentin 300 mg capsule fluoxetine 20 mg capsule insulin glargine [Lantus Solostar U-100 Insulin] 100 unit/mL (3 mL) insulin pen SUBCUT insulin glargine-yfgn [Semglee(insulin glarg-yfgn)Pen] 100 unit/mL (3 mL) insulin pen SUBCUT amoxicillin-pot clavulanate 875-125 mg tablet 1 tablet PO Q12H Qty: 20 0RF Follow-up/Referrals: UNKNOWN,DOCTOR [Primary Care Provider] - Time of Disposition: 16:51
--- OUTSIDE RECORDS SUMMARY | 2025-02-06 16:55 | XMS_ITS | Referral Summary ---
Author Organization [facility] Office Building [address] [place] [id number] Care Team Providers Care Epic Analyst Name Role Phone Rush Pang MD Primary Care Provider Yoel Burgess MD Unavailable [phone] Encounters Date Type Department Care Team Description 12/13/2024 Orders Only [facility] [address] [place] [address] [phone] Yoel Burgess MD Thoracic spine pain (Primary Dx); Lumbosacral spondylosis without myelopathy; Lumbar facet joint syndrome 12/13/2024 9:45 AM ENVIRONMENTAL HEALTH OFFICER - 12/13/2024 11:59 PM ENVIRONMENTAL HEALTH OFFICER Hospital Encounter [facility] [address] [place] [phone] Yoel Burgess MD Lumbosacral spondylosis without myelopathy (Primary Dx); Thoracic spine pain; Lumbar facet joint syndrome Discharge Disposition: Discharge to home or self care from Last 3 Months Allergies Active Allergy Reactions Criticality Noted Date Comments Clarithromycin Rash Medium 02/17/2022 Sulfamethoxazole-Trimetho prim Other (See comments) Low 02/17/2022 Other reaction(s): Other (see comment) Severe stomach cramps Severe stomach cramps Medications carvediloL (COREG) 12.5 mg tablet Take 1 tablet (12.5 mg total) by mouth 2 (two) times a day Active cholecalciferol (VITAMIN D-3) 5,000 unit tablet Take 1 tablet (5,000 Units total) by mouth daily Active famotidine (PEPCID) 20 mg tablet Take 1 tablet (20 mg total) by mouth 2 (two) times a day 3 Active FLUoxetine (PROzac) 20 mg capsule Take 1 capsule (20 mg total) by mouth daily Active gabapentin (NEURONTIN) 300 mg capsule TAKE 1 CAPSULE BY MOUTH IN THE MORNING AND 1 CAPSULE BY MOUTH IN THE AFTERNOON THEN 2 CAPSULES BY MOUTH IN THE EVENING 3 Active LANTUS 100 unit/mL (3 mL) pen for injection INJECT 25 UNITS UNDER THE SKIN EVERY NIGHT AT BEDTIME 3 Active vit D3-vit Q-wstzyhrhc-cml s [id number] usgo-ovu-qw-mg tablet Take 500 mg by mouth 3 (three) times a day Active Active Problems Problem Noted Date Diagnosed Date Lumbosacral spondylosis without myelopathy 12/13 Thoracic spine pain 12/13/2024 Lumbar facet joint syndrome 12/13/2024 Anxiety 10/04/2023 Overview (12/13/2024): Last Assessment & Plan: Condition: stable Source of diagnosis: Review of systems, Screenings/Questionnaires and Medication Member is not currently seeing mental health provider. He has had counselor in past, was given cognitive behavioral modification tips and uses these with current anxiety that he finds is working well. Things you can do to help with anxiety is to try to manage stress and avoid triggers. When becoming anxious, go to a quiet place and try to relax by taking deep breaths, or go outside to get fresh air, or take a walk to try to calm down. Do activities that are soothing like listening to soft music, coloring, reading, or journaling. Follow up in: if symptoms worsen or fail to improve Gastroesophageal reflux disease without esophagi tis 10/04/2023 Overview (12/13/2024): Last Assessment & Plan: Condition: stable Source of diagnosis: Review of systems and Medication Reviewed use of antacid medication and/or diet modifications of decreasing caffeine, spicy foods, chocolate, and avoiding alcohol, tobacco, NSAIDs, and reducing citrus acids. Follow up in: if symptoms worsen or fail to improve Hypertension associated with type 2 diabetes lidia litus 10/04/2023 Overview (12/13/2024): Last Assessment & Plan: Condition: stable Source of diagnosis: Screenings/Questionnaires and Medication Discussed glucose control targets. Educated on: Lifestyle changes, Nutrition, Foot care, Medication compliance and Smoking cessation Follow up in: three months with PCP Morbid (severe) obesity due to excess calories 1 12/05/2022 Overview (12/13/2024): Last Assessment & Plan: Condition: stable Source of diagnosis: Vital signs and Physical Exam Co-morbidities: N/A BMI > 40 Weight loss should be attempted with healthy diet and exercise. Include more fresh vegetables and stick to lean meats. Avoid processed foods, foods high in fat and sugar, and eliminate sugary drinks such as juice and soda. Including exercise should be a minimum of 30 minutes of aerobic activity on most days of the week, along with three days of resistance training. Building muscle helps to burn more calories. Make realistic goals and take baby steps. Make one good healthy choice each day and add another healthy choice each day or each week. Stay consistent and motivated by sharing your goals with others. Follow up in: one month Social History Tobacco Use Types Packs/Day Years Used Date Smoking Tobacco: Former Cigarettes Passive Smoke Exposure: Never Smokeless Tobacco: Never Tobacco Cessation:Counseling Given: No Sex and Gender Information Value Date Recorded Sex Assigned at Not on file Legal Sex Male 1:44 AM ENVIRONMENTAL HEALTH OFFICER Gender Identity Not on file Sexual Orientation Not on file Last Filed Vital Signs Vital Sign Reading Time Taken Comments Blood Pressure 129/97 12/13/2024 10:23 AM ENVIRONMENTAL HEALTH OFFICER Pulse 83 12/13/2024 10:23 AM ENVIRONMENTAL HEALTH OFFICER Temperature - - Respiratory Rate 18 12/13/2024 10:23 AM ENVIRONMENTAL HEALTH OFFICER Oxygen Saturation 97% 12/13/2024 10:23 AM ENVIRONMENTAL HEALTH OFFICER Inhaled Oxygen Concentration - - Weight 122.5 kg (270 lb) 12/13/2024 10:23 AM ENVIRONMENTAL HEALTH OFFICER Height 172.7 cm (5' 8 ) 12/13/2024 10:23 AM ENVIRONMENTAL HEALTH OFFICER Body Mass Index 41.05 12/13/2024 10:23 AM ENVIRONMENTAL HEALTH OFFICER Plan of Treatment Not on file Care Teams Epic Analyst Relationship Specialty Start Date End Date Rush Pang MD [address] [facility] [address] [place] [address] PCP - General Pediatrics 12/13/24 [place] [id number] [facility] [address] [place] [id number] Consulting Physician Pain Management 12/13/24
--- OUTSIDE RECORDS SUMMARY | 2025-02-06 16:55 | XMS_ITS | Clinical Summary ---
Author Organization [facility] Office Building [address] [place] [phone] Care Team Providers Care College Tutor Name Role Phone Rush Pang MD Primary Care Provider Yoel Burgess MD Unavailable [phone] Allergies Active Allergy Reactions Criticality Noted Date [...] NIGHT AT BEDTIME 3 Active vit D3-vit Y-nitlujsxl-rvu s [id number] uhbs-xva-vs-mg tablet Take 500 mg by mouth 3 [...] with others. Follow up in: one month Encounters Date Type Department Care Team Description 12/13/2024 9:45 AM IT ADMINISTRATIVE ASSISTANT - 12/13/2024 11:59 PM IT ADMINISTRATIVE ASSISTANT Hospital Encounter [facility] [address] [place] [phone] Yoel Burgess MD Lumbosacral spondylosis without myelopathy (Primary Dx); Thoracic spine pain; Lumbar facet joint syndrome Discharge Disposition: Discharge to home or self care 12/13/2024 Orders Only [facility] [address] [place] [phone] Yoel Burgess MD Thoracic spine pain (Primary Dx); Lumbosacral spondylosis without myelopathy; Lumbar facet joint syndrome from Last 3 Months Surgical History Surgery Date Site/Laterality Comments OTHER SURGICAL HISTORY pilonidal cyst removed from [facility]-January 2022 TRACHEOSTOMY 2021 GASTROSTOMY W/ FEEDING TUBE 10/25/2021 - 10/24/2022 TONSILLECTOMY 2001 Medical History Medical History Date Comments Anxiety Hypertension Diabetes mellitus (HCC) Pilonidal cyst Family History Medical History Relation Name Comments Early Cardiac Disease Father Sunday Carpal tunnel syndrome Mother Awa Rheum arthritis Mother Awa Relation Name Status Comments Father Sunday Alive Mother Awa Alive Social History Tobacco Use Types Packs/Day Years Used Date Smoking Tobacco: Former Cigarettes Passive Smoke Exposure: Never Smokeless Tobacco: Never Tobacco Cessation:Counseling Given: No Sex and Gender Information Value Date Recorded Sex Assigned at Not on file Legal Sex Male 1:44 AM IT ADMINISTRATIVE ASSISTANT Gender Identity Not on file Sexual Orientation Not on file Obstetrics History Last Filed Vital Signs Vital Sign Reading Time Taken Comments Blood Pressure 129/97 12/13/2024 10:23 AM IT ADMINISTRATIVE ASSISTANT Pulse 83 12/13/2024 10:23 AM IT ADMINISTRATIVE ASSISTANT Temperature - - Respiratory Rate 18 12/13/2024 10:23 AM IT ADMINISTRATIVE ASSISTANT Oxygen Saturation 97% 12/13/2024 10:23 AM IT ADMINISTRATIVE ASSISTANT Inhaled Oxygen Concentration - - Weight 122.5 kg (270 lb) 12/13/2024 10:23 AM IT ADMINISTRATIVE ASSISTANT Height 172.7 cm (5' 8 ) 12/13/2024 10:23 AM IT ADMINISTRATIVE ASSISTANT Body Mass Index 41.05 12/13/2024 10:23 AM IT ADMINISTRATIVE ASSISTANT Plan of Treatment Health Maintenance Due Date Last Done Comments Albumin Creatinine Ratio, Urine 1997 Depression Screening 1997 Hemoglobin A1C 1997 Hepatitis C Screening 1997 eGFR 1997 Dilated Eye Exam 1997 Foot Exam 1997 Lipid Panel 1997 Varicella Vaccines (1 of 2 - 13+ 2-dose series) 2010 Regular Well Visit/Exam 18-64 2015 Pneumococcal vaccine <65 (1 of 2 - PCV) 2016 Covid-19 Vaccine (3 - season) 2024 01/14/2022, 12/24/2021 Influenza Vaccine (Season Ended) 2025 DTaP/Tdap/Td Vaccine (7 - Td or Tdap) 08/27/2029 08/27/2019, 06/21/2002, 04/02/2000, Additional history exists Hepatitis B Screening Completed 10/04/2000 , 1997, 1997, Additional history exists HPV Vaccines Aged Out No longer eligi ble based on patient's age to complete this topic Care Teams College Tutor Relationship Specialty Start Date End Date Rush Pang MD [address] [place] [address] PCP - General Pediatrics 12/13/24 [place] [address] [place] [address] Consulting Physician Pain Management 12/13/24
--- OUTSIDE RECORDS SUMMARY | 2025-02-06 16:55 | XMS_ITS | Clinical Summary ---
Author Organization [facility] Address [address] [place] [address] Care Team Providers Care Credit Verification Clerk Name Role Phone Rush Pang MD [...] 5 Years) and At-Risk Patients (6 to 49 Years) (1 of 2 - PCV) 2003 Hepatitis C 2015 COVID-19 Vaccine (3 - season) 2024 01/14/2022, 12/24/2021 DTaP, Tdap and Td Vaccines (7 - Td or Tdap) 08/27/2029 08/27/2019, 06/21/2002, 04/02/2000, Additional history exists Hepatitis B Vaccines Completed 10/04/2000, 1997, 1997, Additional history exists HPV Vaccines Aged Out No longer eligi ble based on patient's age to complete this topic Meningococcal B Vaccine Aged Out No l onger eligible based on patient's age to complete this topic Meningococcal Vaccine Aged Out No lulu sonny eligible based on patient's age to complete this topic RSV Immunizations Under 20 Months Aged Out No longer eligible based on patient's age to complete this topic [place] [address] [place] [address] [employer] Care Teams Credit Verification Clerk Relationship Specialty Start Date End Date Rush Pang MD [address] [facility] [address] [place] [address] PCP - General INTERNAL MEDICINE 02/20/22
[2025-02-06 16:58] VITALS: O2SAT 100
== END 2025-02-06 16:58 | disposition home or self-care (01) ==
LOC: CHSED 16:59
PROVIDERS: Emergency Provider Family Medicine
DX: R07.0 Pain in throat (principal); J39.2 Other diseases of pharynx; F17.290 Nicotine dependence, other tobacco product, uncomplicated
CPT/HCPCS: 99281

== ENCOUNTER 2025-02-19 11:20 | Emergency (ER) | payer OTHER, SELFPAY ==
--- NOTE | ~2025-02-19 | XR_ITS ---
XR shoulder RT min 2V Ordering provider: Shahid Maradiaga MD History: . right shoulder pain today, felt a pop ac joint pain . Comparison: None. FINDINGS: BONES: No acute fracture or dislocation. JOINT SPACES: The acromioclavicular joint is normal. The glenohumeral joint is normal. SOFT TISSUES: Normal. IMPRESSION: No acute osseous abnormality right shoulder. Reviewed, dictated and finalized at location A.
[2025-02-19 11:20] VITALS: BP 143/93; PULSE 82; RESP 18; TEMP 36.8; O2SAT 99
--- NOTE | 2025-02-19 12:52 | PC.NURSE ---
PT IS IN RADIOLOGY AT THIS TIME.
--- NOTE | 2025-02-19 13:07 | ED.UPPEXIN ---
HPI - Extremity Injury (Upper) General Chief Complaint: Extremity Injury, Upper Stated Complaint: shoulder injury Time Seen by Provider: 02/19/25 11:47 Source: patient Mode of arrival: ambulatory Limitations: no limitations History of Present Illness HPI narrative: patient is a 29-year-old male with significant past medical history that presents today for a right shoulder injury. Patient was on job and says he was using a weed eater which weighs about 10-15 lb and says that he was going back and forth with that and pulled his shoulder and felt a loud pop. This is the same holds shoulder he has injury but previously and had physical therapy for which did help. Now he has injected again as his hertz for most motions and is just taken some ibuprofen for. He says this should be a worker's Comp because It happened at work. complaint: injury to: right and shoulder Onset (ago): hour(s) Other Extremity Injury: Right: shoulder Other injuries: none Place: work Severity: moderate Severity scale (1-10): 5 Relieving factors: none Exacerbating factors: movement of extremity Context: injury Associated symptoms: weakness Related Data Home Medications ?Medication ?Instructions ?Recorded ?Confirmed ?Last Taken ?Type carvedilol 25 mg tablet mg 10/25/24 Unknown History famotidine 20 mg tablet mg 10/25/24 Unknown History fluoxetine 20 mg capsule mg 10/25/24 Unknown History gabapentin 300 mg capsule mg 10/25/24 Unknown History insulin glargine 100 unit/mL (3 unit subcut 10/25/24 Unknown History mL) subcutaneous pen (Lantus Solostar U-100 Insulin) insulin glargine-yfgn 100 unit/mL unit subcut 10/25/24 Unknown History (3 mL) subcutaneous pen (Semglee (insulin glargine-yfgn) Pen) Allergies Allergy/AdvReac Type Severity Reaction Status Date / Time Sulfa (Sulfonamide Allergy Mild Hives Verified 02/19/25 11:24 Antibiotics) Review of Systems Review of Systems: All systems reviewed & are unremarkable except as noted in HPI and below Constitutional: Constitutional: Reports as per HPI Eyes: Eyes: Reports no additional eye complaints ENT: Reports system reviewed and no additional complaints, except as documented Cardiovascular: Cardiovascular: Reports no additional cardiovascular complaints Respiratory: Respiratory: Reports no additional respiratory complaints Gastrointestinal: Gastrointestinal: Reports no additional gastrointestinal complaints Genitourinary: Genitourinary: Reports no additional male genitourinary complaints Musculoskeletal: Musculoskeletal: Reports as per HPI and Reports arthralgias ( right shoulder) Integumentary/Breasts: Skin/Breast: Reports system reviewed and no additional complaints, except as docu Neurologic: Reports system reviewed and no additional complaints, except as documented Psychiatric: Psychiatric: Reports no additional psychiatric complaints Endocrine: Endocrine: Reports no additional endocrine complaints Hematologic/Lymphatic: Hematologic/Lymphatic: Reports no additional hematologic/lymphatic complaints Allergic/Immunologic: Allergic/Immunologic: Reports no additional allergic/immunologic complaints [facility] Past Medical History Medical History No pertinent past medical history Surgical History Surgical History No pertinent past surgical history Family History Family History Mother Family history non-contributory Social History Social History Smoking status: Current every day smoker Tobacco type: e-cigarettes/vaping Living arrangements: with family Gender identity (if verbalized by the patient): Male Sexual Orientation (if Verbalized by the Patient): Straight or Heterosexual Spiritual care concerns: No Exam Const: General: healthy appearing Nutritional Appearance: well nourished Orientation/consciousness: patient oriented x3 HENMT: Head: normal to inspection Ears: external ears normal Face/Nose/Sinus: Normal external nose present Face and sinus: normal facial exam Mouth: Yes Normal oral and palatal mucosa present Eyes: Conjunctivae: conjunctivae normal Pupils: Equal, round and reactive pupils present EOM: EOMs intact bilaterally Direct Ophthalmoscopy: no photophobia Neck: Neck: normal visual inspection Chest: Chest palpation & inspection: normal inspection of the chest Resp: Effort & Inspection: normal respiratory effort Auscultation: clear to auscultation bilaterally Cardio: Rate: regular rate Rhythm: regular rhythm Heart sounds: Murmur heart sound present GI: GI Palp: Yes Soft to palpation Back/Spine/Pelvis: Back: no CVA tenderness Skin: General skin exam: normal color Rashes: no rashes Wounds: no wounds Neuro: General: patient oriented x3 Cranial nerves: Yes Nystagmus not present Speech: normal speech Extrem: General: normal to inspection Psych: Mental Status: mental status grossly normal Affect: normal affect Attitude: cooperative Course Vital Signs Vital signs: Vital Signs Temperature 98.3 F 02/19/25 11:20 Pulse Rate 82 02/19/25 11:20 Respiratory Rate 18 02/19/25 11:20 Blood Pressure 143/93 H 02/19/25 11:20 Pulse Oximetry 99 02/19/25 11:20 Oxygen Delivery Room Air 02/19/25 11:20 Temperature 98.3 F 02/19/25 11:20 Pulse Rate 82 02/19/25 11:20 Respiratory Rate 18 02/19/25 11:20 Blood Pressure 143/93 H 02/19/25 11:20 Pulse Oximetry 99 02/19/25 11:20 Oxygen Delivery Room Air 02/19/25 11:20 MDM - Extremity Injury (Upper) MDM Narrative Medical decision making narrative: patient hurt his right shoulder at work on he was weeding using a weed whacker that weighs about 10 15 lb. He says that he must of twisted it just right and heard a loud popping sensation. He has positive empty can test positive Bradshaw test. He has pain to palpation around the AC joint. Will do an x-ray of the right shoulder. X-ray of the right shoulder showed no acute abnormalities. Discussed with him if he still has pain then X 3 weeks to discuss with his primary care about this and get physical therapy and MRI. Differential Diagnosis Differential diagnosis: Likely other ( Right shoulder pain) Medical Records Attestation: I reviewed the patient's medical records. Lab Data Attestation: I reviewed the patient's lab results. Imaging Data Attestation: I personally reviewed and interpreted this imaging study as follows: Discharge Plan Discharge Clinical Impression: Acute pain of right shoulder, Right shoulder strain Patient Disposition: Home Condition: Stable Instructions: Shoulder Sprain (ED) Additional Instructions: If he is still having pain in the right shoulder at the next 3 weeks return to PCP and recommend doing physical therapy and or getting an MRI. Patient Language: [place] Prescriptions: No Action carvedilol 25 mg tablet famotidine 20 mg tablet gabapentin 300 mg capsule fluoxetine 20 mg capsule insulin glargine [Lantus Solostar U-100 Insulin] 100 unit/mL (3 mL) insulin pen SUBCUT insulin glargine-yfgn [Semglee(insulin glarg-yfgn)Pen] 100 unit/mL (3 mL) insulin pen SUBCUT amoxicillin-pot clavulanate 875-125 mg tablet 1 tablet PO Q12H Qty: 20 0RF Follow-up/Referrals: Bird,Rush [Other] Time of Disposition: 13:21
--- OUTSIDE RECORDS SUMMARY | 2025-02-19 13:20 | XMS_ITS | Clinical Summary ---
Author Organization [facility] Office Building [address] [place] [id number] Care Team Providers Care Gas Meter Reader Name Role Phone Rush Pang MD Primary Care Provider Yoel Burgess MD Unavailable [phone]- [phone] Allergies Active Allergy Reactions Criticality Noted Date [...] NIGHT AT BEDTIME 3 Active vit D3-vit W-cnqdakrzc-soc s [id number] fdde-fyg-qx-mg tablet Take 500 mg by mouth 3 [...] Department Care Team Description 12/13/2024 9:45 AM JUDICIAL CLERK - 12/13/2024 11:59 PM JUDICIAL CLERK Hospital Encounter [facility] [address] [place] [id number] Yoel Burgess MD Lumbosacral spondylosis without myelopathy (Primary Dx); Thoracic spine pain; Lumbar facet joint syndrome Discharge Disposition: Discharge to home or self care 12/13/2024 Orders Only [facility] [address] [place] [id number] Yoel Burgess MD Thoracic spine pain (Primary Dx); Lumbosacral spondylosis without myelopathy; Lumbar facet joint syndrome from Last 3 Months Surgical History Surgery Date Site/Laterality Comments OTHER SURGICAL HISTORY pilonidal cyst removed from [facility]-January 2022 TRACHEOSTOMY 2021 GASTROSTOMY W/ FEEDING TUBE [...] on file Legal Sex Male 1:44 AM JUDICIAL CLERK Gender Identity Not on file Sexual Orientation Not on file Obstetrics History Last Filed Vital Signs Vital Sign Reading Time Taken Comments Blood Pressure 129/97 12/13/2024 10:23 AM JUDICIAL CLERK Pulse 83 12/13/2024 10:23 AM JUDICIAL CLERK Temperature - - Respiratory Rate 18 12/13/2024 10:23 AM JUDICIAL CLERK Oxygen Saturation 97% 12/13/2024 10:23 AM JUDICIAL CLERK Inhaled Oxygen Concentration - - Weight 122.5 kg (270 lb) 12/13/2024 10:23 AM JUDICIAL CLERK Height 172.7 cm (5' 8 ) 12/13/2024 10:23 AM JUDICIAL CLERK Body Mass Index 41.05 12/13/2024 10:23 AM JUDICIAL CLERK Plan of Treatment Health Maintenance Due Date [...] age to complete this topic Care Teams Gas Meter Reader Relationship Specialty Start Date End Date Rush Pang MD [address] [place] [address] PCP - General Pediatrics 12/13/24 [place] [address] [place] [address] Consulting Physician Pain Management 12/13/24
--- OUTSIDE RECORDS SUMMARY | 2025-02-19 13:20 | XMS_ITS | Referral Summary ---
Author Organization [facility] Office Building [address] [place] [phone] Care Team Providers Care Game Designer Name Role Phone Rush Pang MD Primary Care Provider Yoel Burgess MD Unavailable [phone] Encounters Date Type Department Care Team Description 12/13/2024 Orders Only [facility] [address] [place] [phone] Yoel Burgess MD Thoracic spine pain (Primary Dx); Lumbosacral spondylosis without myelopathy; Lumbar facet joint syndrome 12/13/2024 9:45 AM TAX CLERK - 12/13/2024 11:59 PM TAX CLERK Hospital Encounter [facility] [address] [place] [phone] Yoel Burgess MD Lumbosacral spondylosis without [...] NIGHT AT BEDTIME 3 Active vit D3-vit N-abbqqxavl-pyh s [id number] pvmv-sqg-ec-mg tablet Take 500 mg by mouth 3 [...] on file Legal Sex Male 1:44 AM TAX CLERK Gender Identity Not on file Sexual Orientation Not on file Last Filed Vital Signs Vital Sign Reading Time Taken Comments Blood Pressure 129/97 12/13/2024 10:23 AM TAX CLERK Pulse 83 12/13/2024 10:23 AM TAX CLERK Temperature - - Respiratory Rate 18 12/13/2024 10:23 AM TAX CLERK Oxygen Saturation 97% 12/13/2024 10:23 AM TAX CLERK Inhaled Oxygen Concentration - - Weight 122.5 kg (270 lb) 12/13/2024 10:23 AM TAX CLERK Height 172.7 cm (5' 8 ) 12/13/2024 10:23 AM TAX CLERK Body Mass Index 41.05 12/13/2024 10:23 AM TAX CLERK Plan of Treatment Not on file Care Teams Game Designer Relationship Specialty Start Date End Date Rush Pang MD [address] [facility] [address] [place] [address] PCP - General Pediatrics 12/13/24 [place] [address] [facility] [address] [place] [phone] Consulting Physician Pain Management 12/13/24
[2025-02-19 13:30] VITALS: BP 138/80; PULSE 78; RESP 18; TEMP 36.7; O2SAT 99
--- OUTSIDE RECORDS SUMMARY | 2025-02-19 13:49 | XMS_ITS | Referral Summary ---
Author Organization [facility] Office Building [address] [place] [phone] Care Team Providers Care Assembler Equipment Name Role Phone Rush Pang MD Primary Care Provider Yoel Burgess MD Unavailable [phone] Encounters Date Type Department Care Team Description 12/13/2024 Orders Only [facility] [address] [place] [phone] Yoel Burgess MD Thoracic spine pain (Primary Dx); Lumbosacral spondylosis without myelopathy; Lumbar facet joint syndrome 12/13/2024 9:45 AM FERTILIZING MACHINE OPERATOR - 12/13/2024 11:59 PM FERTILIZING MACHINE OPERATOR Hospital Encounter [facility] [address] [place] [phone] Yoel Burgess MD Lumbosacral spondylosis without [...] NIGHT AT BEDTIME 3 Active vit D3-vit C-mmpvhsisz-zfa s [id number] pzet-ocy-sk-mg tablet Take 500 mg by mouth 3 [...] on file Legal Sex Male 1:44 AM FERTILIZING MACHINE OPERATOR Gender Identity Not on file Sexual Orientation Not on file Last Filed Vital Signs Vital Sign Reading Time Taken Comments Blood Pressure 129/97 12/13/2024 10:23 AM FERTILIZING MACHINE OPERATOR Pulse 83 12/13/2024 10:23 AM FERTILIZING MACHINE OPERATOR Temperature - - Respiratory Rate 18 12/13/2024 10:23 AM FERTILIZING MACHINE OPERATOR Oxygen Saturation 97% 12/13/2024 10:23 AM FERTILIZING MACHINE OPERATOR Inhaled Oxygen Concentration - - Weight 122.5 kg (270 lb) 12/13/2024 10:23 AM FERTILIZING MACHINE OPERATOR Height 172.7 cm (5' 8 ) 12/13/2024 10:23 AM FERTILIZING MACHINE OPERATOR Body Mass Index 41.05 12/13/2024 10:23 AM FERTILIZING MACHINE OPERATOR Plan of Treatment Not on file Care Teams Assembler Equipment Relationship Specialty Start Date End Date Rush Pang MD [address] [facility] [address] [place] [address] PCP - General Pediatrics 12/13/24 [place] [id number] [facility] [address] [place] [id number] Consulting Physician Pain Management 12/13/24
--- OUTSIDE RECORDS SUMMARY | 2025-02-19 13:49 | XMS_ITS | Clinical Summary ---
Author Organization [facility] Office Building [address] [place] [phone] Care Team Providers Care Counselor Marriage And Family Name Role Phone Rush Pang MD Primary Care Provider Yoel Burgess MD Unavailable [phone]- [phone] Allergies Active Allergy Reactions Criticality Noted Date [...] NIGHT AT BEDTIME 3 Active vit D3-vit K-aoofgmuxf-otl s [id number] xnkn-jsu-yj-mg tablet Take 500 mg by mouth 3 [...] Department Care Team Description 12/13/2024 9:45 AM CARNIVAL WORKER - 12/13/2024 11:59 PM CARNIVAL WORKER Hospital Encounter [facility] [address] [place] [id number] Yoel Burgess MD Lumbosacral spondylosis without myelopathy (Primary Dx); Thoracic spine pain; Lumbar facet joint syndrome Discharge Disposition: Discharge to home or self care 12/13/2024 Orders Only [facility] [address] [place] [phone] Yoel Burgess MD Thoracic spine pain (Primary Dx); Lumbosacral spondylosis without myelopathy; Lumbar facet joint syndrome from Last 3 Months Surgical History Surgery Date Site/Laterality Comments OTHER SURGICAL HISTORY [facility]22 TRACHEOSTOMY 2021 GASTROSTOMY W/ FEEDING TUBE [...] on file Legal Sex Male 1:44 AM CARNIVAL WORKER Gender Identity Not on file Sexual Orientation Not on file Obstetrics History Last Filed Vital Signs Vital Sign Reading Time Taken Comments Blood Pressure 129/97 12/13/2024 10:23 AM CARNIVAL WORKER Pulse 83 12/13/2024 10:23 AM CARNIVAL WORKER Temperature - - Respiratory Rate 18 12/13/2024 10:23 AM CARNIVAL WORKER Oxygen Saturation 97% 12/13/2024 10:23 AM CARNIVAL WORKER Inhaled Oxygen Concentration - - Weight 122.5 kg (270 lb) 12/13/2024 10:23 AM CARNIVAL WORKER Height 172.7 cm (5' 8 ) 12/13/2024 10:23 AM CARNIVAL WORKER Body Mass Index 41.05 12/13/2024 10:23 AM CARNIVAL WORKER Plan of Treatment Health Maintenance Due Date [...] age to complete this topic Care Teams Counselor Marriage And Family Relationship Specialty Start Date End Date Rush Pang MD [address] [facility] [address] [place] [address] PCP - General Pediatrics 12/13/24 [place] [address] [place] [address] Consulting Physician Pain Management 12/13/24
== END 2025-02-19 13:30 | disposition home or self-care (01) ==
PROVIDERS: Emergency Provider Family Medicine
DX: S46.911A Strain of unspecified muscle, fascia and tendon at shoulder and upper arm level, right arm, initial encounter (principal); F17.290 Nicotine dependence, other tobacco product, uncomplicated; X50.0XXA Overexertion from strenuous movement or load, initial encounter; Y99.0 Civilian activity done for income or pay
CPT/HCPCS: 73030; 99283